=== PATIENT | female | born 1985 | race Caucasian/White ===

== ENCOUNTER 2018-05-18 20:37 | Emergency (ER) | payer OTHER ==
[~2018-05-18] VITALS: Ht 154.9 cm; Wt 95.0 kg
[2018-05-19] MEDS ORDERED: IBUPROFEN 600MG TABLET PO ONE
[2018-05-19] MEDS ORDERED: ACETAMINOPHEN 325MG TABLET PO ONE
[2018-05-19 00:05] VITALS: BP 138/94
== END 2018-05-19 00:10 | disposition home or self-care (01) ==
LOC: ER 20:37
DX: S63.502A Unspecified sprain of left wrist, initial encounter (principal); J45.909 Unspecified asthma, uncomplicated; X58.XXXA Exposure to other specified factors, initial encounter; Y93.89 Activity, other specified; Y92.89 Other specified places as the place of occurrence of the external cause; Y99.8 Other external cause status
CPT/HCPCS: 73110; 81025; 99283

== ENCOUNTER 2018-06-27 17:55 | Emergency (ER) | payer OTHER, MEDICAID ==
[~2018-06-27] VITALS: Ht 154.9 cm; Wt 95.0 kg
[2018-06-27 18:50] VITALS: BP 137/83
== END 2018-06-27 20:58 | disposition left against medical advice (07) ==
LOC: ER 17:55
DX: M79.642 Pain in left hand (principal); Z53.21 Procedure and treatment not carried out due to patient leaving prior to being seen by health care provider